=== PATIENT | male | born 1930 | race Caucasian/White ===

== ENCOUNTER 2016-05-07 16:01 | Inpatient (IN) | payer MEDICARE, BC ==
--- NOTE | ~2016-05-07 | DS ---
Unit #: [id number] #: [id number] Patient: COLBY CARVALHO [id number] [address] [address] [id number] I MR#: [id number] NAME: COLBY CARVALHO ROOM: 469 Age: 85 Sex: M Admission Date: 05/07/2016 : 1930 Discharge Date: 05/11/2016 Attending Physician: José Young M.D. Primary Care Physician: Sue Bell Aprn DISCHARGE SUMMARY ADDENDUM Please see above for hospital stay. At the time of discharge, Physical and occupational therapy Services were evaluating the patient, ambulating him approximately 250 feet and they felt as though the patient was in favor of going home and therefore rather than planning for discharge to rehab, the patient will be transitioned back home in stable condition. He was given appropriate prescriptions as mentioned above. It is ideal if he could follow up with his PCP in approximately 7 to 10 days postdischarge. Dictated by... Simon Ryder/victor hugo TD: 05/12/2016 02:34 JOB #: [id number] DISCHARGE SUMMARY Page 1 of 1 X José Young MD X DISCHARGE SUMMARY
--- NOTE | ~2016-05-07 | CO ---
Unit #: [id number] #: [id number] Patient: COLBY CARVALHO [id number] [address] [address] [id number] I MR#: [id number] NAME: COLBY CARVALHO. ROOM: 469 Age: 85 Sex: M Admission Date: 05/07/2016 : 1930 Attending Physician: José Young M.D. Primary Care Physician: Sue Bell Aprn Consultation Date: 05/08/2016 CONSULTATION REPORT REASON FOR CONSULTATION Right wrist pain. HISTORY OF PRESENT ILLNESS Mr. Carvalho is a pleasant 85-year-old male, who presents today with right wrist pain. The patient reports right wrist pain that has been going on for the past 4 days. He reports increased swelling and decreased mobility. The patient is unable to hold anything heavy in his hand, because of the wrist pain. He reports no injury that he can recall. No falls or altercations. The patient reports all of his pain is at the distal radius. The patient denies any history of gouty attack. PAST MEDICAL HISTORY Significant for, 1. Chronic respiratory failure. 2. COPD. 3. Hypertension. 4. Hyperlipidemia. 5. Prostate cancer. MEDICATIONS Include Coreg, Prinivil, Advair, ProAir, tramadol, probiotic, multivitamin, and glucosamine. ALLERGIES Aspirin. FAMILY HISTORY Insignificant. PAST SURGICAL HISTORY Significant for prostatectomy, colonoscopy, and kyphoplasty. SOCIAL HISTORY The patient smokes a pack of cigarettes a day. He denies any alcohol or illicit drug use. REVIEW OF SYSTEMS Ten organ systems reviewed. The patient denies any blurry vision, congestion, sore throat, shortness of breath, chest pain, abdominal pain, urinary incontinence, numbness, tingling, skin ulcers or lesions, anxiety, depression. Positive for joint pain. Unit #: [id number] #: [id number] Patient: COLBY CARVALHO PHYSICAL EXAMINATION GENERAL: No acute distress, alert and oriented x3. VITAL SIGNS: Temperature 98.6, pulse 91, respirations 18, blood pressure 130/70. HEENT: PERRLA. Nonicteric sclerae. THORAX: Trachea midline. No thyromegaly. CARDIAC: S1, S2. No extra sounds or murmurs. LUNGS: Clear to auscultation. No rales or rhonchi. ABDOMEN: Nondistended and nontender. Positive bowel sounds. : Deferred. MUSCULOSKELETAL: Positive edema. No erythema or ecchymosis. Decreased range of motion. Very limited flexion. Tenderness to palpation over the distal radius. NEUROLOGIC: II through XII intact. SKIN: Cool and dry. PSYCH: Good insight and good judgment. Mood and affect are pleasant. DIAGNOSTIC STUDIES LABORATORY RESULTS: On admission show an elevated CRP and sedimentation rate. IMAGING STUDIES: X-rays Of the right wrist show no acute abnormalities, no fractures or dislocations. CT scan was ordered in the emergency room, it is currently pending. ASSESSMENT Right wrist, pseudogout. PLAN I have discussed treatment options with the patient once we get the CT scan read and resulted, we will make our assessment. The patient will continue his cortisone by mouth. I recommended an aspiration today. We will go ahead and order the materials and aspirate his wrist looking for any crystals or infection. It does not appear that the patient has any signs of infection today, it looks like more of a gout or pseudogout abnormality. Dictated by... Too Huntley/victor hugo TD: 05/11/2016 23:02 JOB #: [id number] CONSULTATION REPORT Page 1 of 1 X Imani Duff CONSULTATION REPORT
--- NOTE | ~2016-05-07 | DS ---
Unit #: [id number] #: [id number] Patient: COLBY CARVALHO [id number] [address] [address] [id number] I MR#: [id number] NAME: COLBY CARVALHO. ROOM: 469 Age: 85 Sex: M Admission Date: 05/07/2016 : 1930 Discharge Date: 05/11/2016 Attending Physician: José Young M.D. Primary Care Physician: Sue Bell Aprn DISCHARGE SUMMARY REASON FOR ADMISSION Weakness and right upper extremity red swollen right wrist. HISTORY OF PRESENT ILLNESS/HOSPITAL COURSE The patient is a very pleasant 85-year-old male with underlying history of COPD and chronic respiratory failure, not on home O2; hypertension; hyperlipidemia; prior history of hemorrhagic CVA; prostate cancer, who presented to the emergency department secondary to evaluation of above. Through hospital course, he underwent a CT of his right upper extremity, which raise the possibility of pseudogout versus crystal deposition. In regard to the same results, we raised the possibility of septic arthritis and therefore we consulted Orthopedic services, [facility] saw and evaluated the patient. The patient underwent a trial of aspiration. Unfortunately, there was no fluid which was elicited. His uric acid level was assessed that was normal. His inflammatory markers were elevated and therefore, consideration for possible pseudogout was made and therefore, we placed him on IV Solu-Medrol as well as anti-inflammatories in the IV. His right wrist responded very well. He was able to regain full function of his right wrist swelling that did reduce as well as did redness. Physical and occupational therapy Services saw and evaluated the patient in consideration, the patient does reside at home alone. Both services have now recommended rehab at time of discharge given his prior history of CVA as well as a chronic debilitated state and profound weakness. They have recommended physical and occupational therapy at the rehab facility with transitioned to home at a later point in time. Therefore, appropriate arrangements will be made for the patient to be transitioned to rehab later this afternoon. FINAL DISCHARGE DIAGNOSES 1. Right wrist pseudogout. 2. Immobility syndrome. 3. Prior history of hemorrhagic cerebrovascular accident. 4. Chronic deconditioning. 5. Chronic respiratory failure. 6. Chronic obstructive pulmonary disease. 7. Hypertension. 8. Hyperlipidemia. 9. Prior history of prostate cancer, status post prostatectomy. Unit #: [id number] #: [id number] Patient: COLBY CARVALHO 10. Ongoing tobacco abuse. 11. Prior history of compression fracture, status post kyphoplasty. 12. Chronic pain syndrome. DISCHARGE MEDICATIONS ProAir HFA one puff q.4 p.r.n., Advair 250/50 one puff b.i.d., probiotic daily, Coreg 3.125 mg p.o. b.i.d., Prinivil 5 mg p.o. daily, multivitamin daily, prednisone 40 mg p.o. daily x5 days, Mobic 15 mg p.o. daily x5 days, and Ultram 50 mg p.o. q.8 p.r.n. DISCHARGE CONDITION Stable. DISCHARGE DISPOSITION To rehab for ongoing care. Dictated by... Simon Ryder/victor hugo TD: 05/11/2016 23:45 JOB #: [id number] DISCHARGE SUMMARY Page 1 of 1 X José Young MD X DISCHARGE SUMMARY
--- NOTE | ~2016-05-07 | CR282 ---
[facility] A Service of [facility] & [facility] RADIOLOGY TEXT RESULTS PATIENT: COLBY CARVALHO LOCATION: [facility] 469-01 : 32 UNIT #: [id number] AGE: [address]: José Young MD SEX: M ORDER DR: [id number] [facility] [address] [place], [place] [address] [id number] I MR#: [id number] Acc #: [id number] NAME: COLBY CARVALHO : 1930 SEX: M STUDY DATE/TIME: 05/07/2016 15:14 UNIT: [facility] ROOM: [facility] STUDY DESCRIPTION: CR Wrist Min 3 View Rt Attending Physician: Radha Baumann M.D. Ordering Physician: Kierra Mahoney M.D. Primary Care Physician: Doreen Bell MEDICAL IMAGING REPORT This report is preliminary unless electronic signature is present EXAM Right wrist, 05/07/2016 INDICATION Pain and swelling for the last 5 days with no known trauma. History of prostate cancer. FINDINGS 3 views of the right wrist were obtained. No comparison. Patient is osteopenic. There is calcification in the TFCC. There are also some soft tissue calcifications at the second metacarpophalangeal joint. These are all presumably degenerative. There is degenerative joint space narrowing and spurring at the first carpometacarpal joint. There are no fractures. There is radiocarpal joint space narrowing as well. IMPRESSION Osteopenia and degenerative disease as above, particularly at the first CMC joint and at the radiocarpal joint. No fracture. Dictated by... Alton Fernández Jr., M.D. THIS IS AN ELECTRONICALLY VERIFIED REPORT Alton Fernández Jr., M.D. at 05/11/2016 2:24 PM DEMARCUS/dinorah TD: 05/07/2016 23:14 JOB #: [id number] MEDICAL IMAGING REPORT COPY
--- NOTE | ~2016-05-07 | CT130 ---
[facility] A Service of [facility] & [facility] RADIOLOGY TEXT RESULTS PATIENT: COLBY CARVALHO LOCATION: [facility] 469-01 : 32 UNIT #: [id number] AGE: [address]: José Young MD SEX: M ORDER DR: [id number] [facility] [address] [place], [place] [address] [id number] I MR#: [id number] Acc #: [id number] NAME: COLBY CARVALHO. : 1930 SEX: M STUDY DATE/TIME: 05/07/2016 17:39 UNIT: [facility] ROOM: [facility] STUDY DESCRIPTION: CT Upper Ext Rt Wo Cont Attending Physician: Radha Baumann M.D. Ordering Physician: Kierra Mahoney M.D. Primary Care Physician: Doreen Bell MEDICAL IMAGING REPORT This report is preliminary unless electronic signature is present EXAM CT right wrist HISTORY Right arm redness, swelling since Wednesday. This CT exam was performed with one or more of the following radiation dose reduction techniques: automatic exposure control, adjustment of mA and/or kV according to patient size, and iterative reconstruction. FINDINGS Thin section axial images performed form through the right wrist without contrast. Multiplanar reconstructed images reviewed at a workstation. The study is limited due to the nonstandard orientation of the reconstructed images as these were performed emergently. Examination demonstrates arthrographic changes about the wrist with chondrocalcinosis in the midcarpal joints and also at the radiocarpal joint particularly in the region of the TFCC complex. This extensive chondrocalcinosis in combination with patient's clinical presentation suggests possible pseudogout or CPPD arthropathy. No fracture identified. No joint effusion. Mild arthritic changes are seen at the first CMC joint. IMPRESSION 1. Abnormal CT of the right wrist demonstrating extensive chondrocalcinosis involving the radiocarpal joint and to a lesser extent the midcarpal joint. This is very prominent in the region of the triangular fibrocartilage complex. In combination with the patient's clinical presentation this raises concern for possible pseudogout or CPPD arthropathy. Further evaluation with joint aspiration and crystallin analysis may be of benefit. 2. No acute fracture or malalignment. No focal osteolysis. [facility]. [facility] A Service of [facility] RADIOLOGY TEXT RESULTS PATIENT: COLBY CARVALHO LOCATION: [facility] 469-01 : 32 UNIT #: [id number] AGE: [address]: José Young MD SEX: M ORDER DR: Dictated by... Donnell Leija M.D. THIS IS AN ELECTRONICALLY VERIFIED REPORT Donnell Leija M.D. at 05/08/2016 5:11 PM Quynh TD: 05/08/2016 08:10 JOB #: [id number] MEDICAL IMAGING REPORT COPY
--- NOTE | ~2016-05-07 | HP ---
Unit #: [id number] #: [id number] Patient: COLBY CARVALHO [id number] [facility] [address] [place], [place] [address] [id number] MR#: [id number] NAME: COLBY CARVALHO. ROOM: 469 Age: 85 Sex: M Admission Date: 05/07/2016 : 1930 Attending Physician: Radha Baumann M.D. Primary Care Physician: Sue Bell Aprn HISTORY AND PHYSICAL CHIEF COMPLAINT Weakness right arm, red and swelling since Wednesday. HISTORY OF PRESENT ILLNESS The patient is an 85-year-old male with a past medical history of COPD, chronic respiratory failure, hypertension, hyperlipidemia, hemorrhagic stroke, prostate cancer, who presented to the emergency department for evaluation of the above. The patient states that he has not been feeling well for the past four to five days. He has had increasing generalized weakness. He has had a cough for about a week. He apparently saw his primary care physician last week and was not given any antibiotics. He reports that the cough has been occasionally productive. He has had chills. On 05/01/2016, the patient noticed that his right wrist was sore. It has become increasing red, swollen, and painful since that time. He has decreased appetite. He denies any vomiting or diarrhea. He has had chills. He denies any trauma to the wrist. In the emergency department a right wrist x-ray was done and showed no fracture. A CT of the right upper extremity is pending. Chest x-ray shows nothing acute. He was given vancomycin and Rocephin for possible septic arthritis. He is being admitted to [facility] for evaluation and further treatment. PAST MEDICAL HISTORY 1. The patient was admitted to [facility] in 05/2015 when he slid out of his chair and he subsequently went to rehab (no records). 2. The patient was seen at [facility] 12/07/[address] showed intraparenchymal hemorrhage and so he was transferred to [facility]. 3. Chronic respiratory failure on 2 L of oxygen per nasal cannula. 4. COPD. 5. Hypertension. 6. Hyperlipidemia. 7. Prostate cancer, status post prostatectomy. 8. COPD with continued tobacco abuse. PAST SURGICAL HISTORY 1. Colonoscopy. 2. Kyphoplasty. SOCIAL HISTORY The patient lives alone. He smokes a pack of cigarettes daily. He denies Unit #: [id number] #: [id number] Patient: COLBY CARVALHO alcohol use. FAMILY HISTORY Notable for his dad having a stroke. ALLERGIES Aspirin. HOME MEDICATIONS Coreg 3.125 mg daily; Prinivil 5 mg daily; Advair 250/50 inhaled daily; ProAir p.r.n.; tramadol 2 tablets t.i.d. p.r.n.; probiotic daily; Theragran multivitamin daily; glucosamine chondroitin twice daily. REVIEW OF SYSTEMS A complete review of systems is negative except as indicated in the HPI. PHYSICAL EXAMINATION VITAL SIGNS: Temperature is 98.6, pulse 91, respirations 18, blood pressure 130/70, oxygen saturation was 89% on room air. GENERAL: The patient is a male who is awake and alert in no acute distress. HEENT: Head is atraumatic. Mucous membranes are moist. NECK: Supple. Trachea is midline. CARDIOVASCULAR: Regular rate and rhythm. LUNGS: Relatively clear to auscultation bilaterally with no increased work of breathing. ABDOMEN: Soft, nontender with bowel sounds present in all four quadrants. EXTREMITIES: The dorsal aspect of the right wrist is erythematous, warm, edematous and tender to the lightly palpation. He does have a 2+ radial pulse in this region. There is no pedal edema. NEUROLOGIC: The patient is awake and alert. He follows commands. PSYCH: Mood and affect are normal. The patient is cooperative. SKIN: Skin of examined areas is warm and dry. DIAGNOSTIC STUDIES CARDIOLOGY STUDIES: EKG shows normal sinus rhythm at a rate of 81 BPM. IMAGING STUDIES: Chest x-ray shows nothing acute. Right wrist x-ray shows no fracture. LABORATORY STUDIES: Troponin is less than 0.05, INR 1.1, BNP is 30, lactic acid is 1.4. Comprehensive metabolic panel is notable for a chloride of 94, bicarb is 35, BUN and creatinine 25 and 1 respectively. Total protein is 8.4, magnesium is 1.7, CRP is 15.8. Complete blood count is essentially normal. Urinalysis notable for 2+ protein. ASSESSMENT The patient is an 85-year-old male with: 1. Right wrist pain concerning for septic arthritis. The ER physician, Dr. Mahoney, spoke with Morenita of orthopedics who agreed to see the patient in consultation. The patient has been given vancomycin, Rocephin and Zithromax in the emergency department. 2. COPD with continued tobacco abuse. 3. Chronic respiratory failure on 2 L of oxygen per nasal cannula. 4. Hypertension. 5. Hyperlipidemia. 6. History of prostate cancer, status post prostatectomy. Unit #: [id number] #: [id number] Patient: COLBY CARVALHO PLANS 1. Admit to an intermediate level. 2. Healthy heart diet. 3. Normal saline at 75 mL an hour. 4. Blood cultures x2. 5. Vancomycin IV and Rocephin IV pending further workup. 6. Consult Dr. Burnett regarding septic arthritis. 7. Supplemental oxygen. 8. P.r.n. DuoNeb. 9. Serial cardiac enzymes. 10. P.r.n. [place]. 11. Repeat labs in the morning. 12. SCDs for DVT prophylaxis. 13. Additional workup and consultants based on above. Dictated by Simon Kaiser/sanjay TD: 05/08/2016 06:25 JOB #: [id number] HISTORY AND PHYSICAL X Radha Baumann MD X HISTORY AND PHYSICAL
--- NOTE | ~2016-05-07 | CR72 ---
[facility] A Service of [facility] RADIOLOGY TEXT RESULTS PATIENT: COLBY CARVALHO LOCATION: [facility] : 32 UNIT #: [id number] AGE: [address]: Radha Baumann MD SEX: M ORDER DR: [id number] [facility] [address] [place], [place] [address] [id number] I MR#: [id number] Acc #: [id number] NAME: COLBY CARVALHO : 1930 SEX: M STUDY DATE/TIME: 05/07/2016 15:13 UNIT: [facility] ROOM: [facility] STUDY DESCRIPTION: CR Chest Single View Portable Attending Physician: Radha Baumann M.D. Ordering Physician: Kierra Mahoney M.D. Primary Care Physician: Sue Bell Aprn MEDICAL IMAGING REPORT This report is preliminary unless electronic signature is present EXAM Portable chest. DATE OF EXAM 05/07/2016 HISTORY Cough and weakness for the past 5 days. TECHNIQUE A single AP view of the chest was obtained. COMPARISON Compared with 12/07/2014. FINDINGS Cardiomegaly has improved since the previous exam. Nonspecific patchy infiltrates are seen at both lung bases, but they are present on the previous examination as well. The upper lung jean baptiste are clear and the vascular pattern is normal. No pleural fluid is seen. IMPRESSION Chronic bibasilar infiltrates are again noted and not significantly changed. Cardiomegaly has improved since the previous exam. No active disease. Dictated by... Alton Pascal M.D. THIS IS AN ELECTRONICALLY VERIFIED REPORT Alton Pascal M.D. at 05/08/2016 8:20 AM RLF/jt [facility] A Service of [facility] RADIOLOGY TEXT RESULTS PATIENT: COLBY CARVALHO LOCATION: [facility] 4610-23 : 32 UNIT #: [id number] AGE: [address]: Radha Baumann MD SEX: M ORDER DR: TD: 05/07/2016 23:16 JOB #: [id number] MEDICAL IMAGING REPORT COPY
--- NOTE | ~2016-05-07 | EKG ---
PATIENT: COLBY CARVALHO UNIT #: [id number] Ventricular Rate: 81 BPM Atrial Rate: 81 BPM P-R Interval: 138 ms QRS Duration: 96 ms Q-T Interval: 356 ms QTC Calculation(Bezet): 413 ms P [place]: 51 degrees Calculated R [place]: 52 degrees Calculated T [place]: 59 degrees Diagnosis Line: Normal sinus rhythm Diagnosis Line: Normal ECG Diagnosis Line: When compared with ECG of 07-DEC-2014 14:16, Diagnosis Line: Premature atrial complexes are no longer Present Diagnosis Line: Confirmed by MARISSA FINNEY MD ([id number]) on 05/08/2016 Diagnosis Line: 12:06:18 PM INTERPRETING MD: REG COOLEY
[2016-05-07 15:28] LABS: BASOPHIL% 0.4 % (0-2.5); EOSINOPHIL# 0.2 X10e3 (0-0.7); EOSINOPHIL% 2.1 % (0.0-7.0); HEMATOCRIT 47.4 % (38.0-50.0); HEMOGLOBIN 15.6 gm/dL (13.0-16.0); LYMPHOCYTE# 1.2 X10e3 (1.0-3.5); LYMPHOCYTE% 12.6 % (17.0-45.0); MEAN CELL VOLUME 98.9 FL (83-96); MEAN CORPUSCULAR HEMOGLOBIN 32.6 PG (28-34); MEAN CORPUSCULAR HGB CONC 32.9 g/dL (30-36); MEAN PLATELET VOLUME 8.1 FL (6.5-11.5); MONOCYTE# 0.9 X10e3 (0-1.0); MONOCYTE% 9.2 % (3.0-12.0); NEUTROPHIL# 7.4 X10e3 (1.5-7.1); NEUTROPHIL% 75.7 % (40-75); PLATELET COUNT 169 X10e3 (140-420); RED CELL DISTRIBUTION WIDTH 13.8 % (11.0-15.5); WHITE BLOOD COUNT 9.8 X10e3 (4.0-10.5)
[2016-05-07 15:37] LABS: POC - CKMB 2.3 ng/mL (0.0-7.9); POC - TROPONIN <0.05 ng/mL (<=0.05)
[2016-05-07 15:40] LABS: DIFF IND NO
[2016-05-07 15:59] LABS: INR 1.1; PARTIAL THROMBOPLASTIN TIME 26.4 SECONDS (23.5-31.3); PROTHROMBIN TIME (PATIENT) 11.8 SECONDS (9.6-11.5)
[~2016-05-07 16:01] MED LIST: CARDIZEM CD; CARVEDILOL12.5 MG PO; DIOVAN; IBUPROFEN; KEFLEX PO; LORTAB 7.5-3251 EACH PO; MULTI-VITAMIN1 TAB; NIACIN; PERCOCET7.5 PO; PROBIOTIC1 EAC1 PO; VICODIN 5/500 T1 TAB PO; ZESTRIL40 MG PO
[2016-05-07 16:12] LABS: ALBUMIN SERUM 3.7 g/dL (3.5-5.0); ALKALINE PHOSPHATASE 84 U/L (32-92); ALT (SGPT) 14 U/L (10-40); AST (SGOT) 35 U/L (10-42); BILIRUBIN, DIRECT 0.2 mg/dL (0.0-0.2); BILIRUBIN,INDIRECT 0.7 mg/dL (0.0-0.9); BILIRUBIN,TOTAL 0.9 mg/dL (0.2-2.0); BLOOD UREA NITROGEN 25 mg/dL (9-23); CALCIUM SERUM 9.6 mg/dL (8.4-10.2); CARBON DIOXIDE 35 mmol/L (22-31); CHLORIDE 94 mmol/L (100-111); GLOM FILT RATE Estimated ABOVE60 mL/min (>60); GLUCOSE FASTING 81 mg/dL (70-110); MAGNESIUM 1.7 mg/dL (1.6-3.0); POTASSIUM 4.1 mmol/L (3.5-5.1); PROTEIN TOTAL SERUM 8.4 g/dL (6.0-8.3); SODIUM 139 mmol/L (135-145)
[2016-05-07 17:03] LABS: POC - TROPONIN <0.05 ng/mL (<=0.05)
[2016-05-07] MEDS ORDERED: COREG3.125 MG PO (17:25)
[2016-05-07] MEDS ORDERED: PRINIVIL5 MG PO (17:25)
[2016-05-07] MEDS ORDERED: ADVAIR 250-501 EACH INH (17:25)
[2016-05-07] MEDS ORDERED: PROAIR HFA8.5 GM INH (17:26)
[2016-05-07] MEDS ORDERED: TRAMADOL HCL50 M1 PO (17:27)
[2016-05-07] MEDS ORDERED: PROBIOTIC1 EAC1 PO (17:27)
[2016-05-07] MEDS ORDERED: THERAGRAN1 TAB PO (17:27)
[2016-05-07] MEDS ORDERED: CVS GLUCOSAMIN1 EACH PO (17:28)
[2016-05-07 17:41] LABS: URINE SOURCE CLEAN CATCH
[2016-05-07 17:56] LABS: URINE APPEARANCE CLEAR; URINE BILIRUBIN NEG (NEG); URINE BLOOD NEG (NEG); URINE COLOR DK YELLOW; URINE GLUCOSE NEG (NEG); URINE KETONE TRACE (NEG); URINE LEUKOCYTE ESTERASE NEG (NEG); URINE NITRATE NEG (NEG); URINE PROTEIN 2+ (NEG); URINE SPECIFIC GRAVITY 1.028 (1.003-1.035)
[2016-05-07 17:59] LABS: URINE BACTERIA AUWI NEG (NEGATIVE); URINE SQUAMOUS EPITHELIAL CELL NONE SEEN /[HPF]; UWBCS1 AUWI 0-2 (0-5)
[2016-05-07 18:01] LABS: CULTURE INDICATED? NO
[2016-05-08 00:10] LABS: %MB 0.4 % (0.0-4.0); MB 1.7 ng/ml
[2016-05-08 05:01] LABS: BASOPHIL% 0.6 % (0-2.5); DIFF IND NO; EOSINOPHIL# 0.3 X10e3 (0-0.7); EOSINOPHIL% 3.7 % (0.0-7.0); HEMATOCRIT 41.7 % (38.0-50.0); HEMOGLOBIN 13.6 gm/dL (13.0-16.0); LYMPHOCYTE# 1.6 X10e3 (1.0-3.5); LYMPHOCYTE% 19.9 % (17.0-45.0); MEAN CELL VOLUME 99.2 FL (83-96); MEAN CORPUSCULAR HEMOGLOBIN 32.3 PG (28-34); MEAN CORPUSCULAR HGB CONC 32.5 g/dL (30-36); MEAN PLATELET VOLUME 7.8 FL (6.5-11.5); MONOCYTE# 0.7 X10e3 (0-1.0); MONOCYTE% 9.4 % (3.0-12.0); NEUTROPHIL# 5.3 X10e3 (1.5-7.1); NEUTROPHIL% 66.4 % (40-75); PLATELET COUNT 135 X10e3 (140-420); RED CELL DISTRIBUTION WIDTH 13.7 % (11.0-15.5); WHITE BLOOD COUNT 7.9 X10e3 (4.0-10.5)
[2016-05-08 05:50] LABS: %MB 0.4 % (0.0-4.0); MB 1.4 ng/ml
[2016-05-08 06:14] LABS: ALBUMIN SERUM 2.7 g/dL (3.5-5.0); ALKALINE PHOSPHATASE 64 U/L (32-92); ALT (SGPT) 14 U/L (10-40); AST (SGOT) 23 U/L (10-42); BILIRUBIN,TOTAL 0.6 mg/dL (0.2-2.0); BLOOD UREA NITROGEN 17 mg/dL (9-23); BUN/CREATININE RATIO 24.28; CALCIUM SERUM 8.3 mg/dL (8.4-10.2); CARBON DIOXIDE 31 mmol/L (22-31); CHLORIDE 96 mmol/L (100-111); CREATININE SERUM 0.7 mg/dL (0.6-1.4); GLOM FILT RATE Estimated ABOVE60 mL/min (>60); GLUCOSE FASTING 102 mg/dL (70-110); POTASSIUM 3.9 mmol/L (3.5-5.1); PROTEIN TOTAL SERUM 6.2 g/dL (6.0-8.3); SODIUM 135 mmol/L (135-145)
[2016-05-09 03:58] LABS: HEMATOCRIT 40.4 % (38.0-50.0); HEMOGLOBIN 13.2 gm/dL (13.0-16.0); MEAN CELL VOLUME 97.5 FL (83-96); MEAN CORPUSCULAR HGB CONC 32.8 g/dL (30-36); MEAN PLATELET VOLUME 8.7 FL (6.5-11.5); RED BLOOD COUNT 4.14 X10e (3.90-5.60); RED CELL DISTRIBUTION WIDTH 13.7 % (11.0-15.5); WHITE BLOOD COUNT 6.2 X10e3 (4.0-10.5)
[2016-05-09 11:01] LABS: BLOOD UREA NITROGEN 21 mg/dL (9-23); CALCIUM SERUM 8.7 mg/dL (8.4-10.2); CARBON DIOXIDE 27 mmol/L (22-31); CHLORIDE 100 mmol/L (100-111); CREATININE SERUM 0.7 mg/dL (0.6-1.4); GLOM FILT RATE Estimated ABOVE60 mL/min (>60); GLUCOSE FASTING 224 mg/dL (70-110); POTASSIUM 4.3 mmol/L (3.5-5.1); SODIUM 137 mmol/L (135-145)
[2016-05-10 03:41] LABS: BASOPHIL% 0.1 % (0-2.5); DIFF IND NO; HEMATOCRIT 40.6 % (38.0-50.0); HEMOGLOBIN 13.5 gm/dL (13.0-16.0); LYMPHOCYTE# 0.8 X10e3 (1.0-3.5); LYMPHOCYTE% 9.2 % (17.0-45.0); MEAN CELL VOLUME 97.3 FL (83-96); MEAN CORPUSCULAR HEMOGLOBIN 32.3 PG (28-34); MEAN CORPUSCULAR HGB CONC 33.2 g/dL (30-36); MEAN PLATELET VOLUME 8.7 FL (6.5-11.5); MONOCYTE# 0.4 X10e3 (0-1.0); MONOCYTE% 4.5 % (3.0-12.0); NEUTROPHIL# 7.6 X10e3 (1.5-7.1); NEUTROPHIL% 86.2 % (40-75); PLATELET COUNT 143 X10e3 (140-420); RED BLOOD COUNT 4.17 X10e (3.90-5.60); RED CELL DISTRIBUTION WIDTH 13.5 % (11.0-15.5); WHITE BLOOD COUNT 8.8 X10e3 (4.0-10.5)
[2016-05-10 04:01] LABS: BLOOD UREA NITROGEN 24 mg/dL (9-23); CALCIUM SERUM 8.2 mg/dL (8.4-10.2); CARBON DIOXIDE 28 mmol/L (22-31); CHLORIDE 99 mmol/L (100-111); CREATININE SERUM 0.8 mg/dL (0.6-1.4); GLOM FILT RATE Estimated ABOVE60 mL/min (>60); GLUCOSE FASTING 149 mg/dL (70-110); POTASSIUM 4.2 mmol/L (3.5-5.1); SODIUM 131 mmol/L (135-145)
[2016-05-11 03:54] LABS: BLOOD UREA NITROGEN 29 mg/dL (9-23); BUN/CREATININE RATIO 36.25; CALCIUM SERUM 8.6 mg/dL (8.4-10.2); CARBON DIOXIDE 29 mmol/L (22-31); CHLORIDE 96 mmol/L (100-111); CREATININE SERUM 0.8 mg/dL (0.6-1.4); GLOM FILT RATE Estimated ABOVE60 mL/min (>60); GLUCOSE FASTING 168 mg/dL (70-110); POTASSIUM 4.6 mmol/L (3.5-5.1); SODIUM 134 mmol/L (135-145)
[2016-05-11] MEDS ORDERED: ULTRAM PO (13:18)
[2016-05-11] MEDS ORDERED: PREDNISONE PO (13:18)
[2016-05-11] MEDS ORDERED: MOBIC PO (13:19)
[2016-05-11] MEDS ORDERED: PEPCID PO (13:21)
== END 2016-05-11 14:09 | disposition home health service (06) | DRG 553 ==
LOC: CED 16:01 → CEDOF 19:10 → C4C 20:50
PROVIDERS: Emergency Medicine; Family Medicine
DX: M11.231 Other chondrocalcinosis, right wrist (principal); J96.91 Respiratory failure, unspecified with hypoxia; J44.9 Chronic obstructive pulmonary disease, unspecified; M62.3 Immobility syndrome (paraplegic); Z86.73 Personal history of transient ischemic attack (TIA), and cerebral infarction without residual deficits; I10 Essential (primary) hypertension; E78.5 Hyperlipidemia, unspecified; Z85.46 Personal history of malignant neoplasm of prostate; G89.4 Chronic pain syndrome; F17.210 Nicotine dependence, cigarettes, uncomplicated; Z51.5 Encounter for palliative care
CPT/HCPCS: 36415; 71010; 73110; 73200; 80048; 80053; 80076; 81003; 82550; 82553; 83605; 83735; 83880; 84484; 84550; 85025; 85027; 85610; 85652; 85730; 86140; 87040; 93005; 94640; 94760; 96365; 96367; 97110; 97116; 97162; 97167; 97530; 97535; 99285; C9113; G8978-GP; G8979-GP; G8987-GO; G8988-GO; J0456; J0696; J1885; J2920; J2930; J3370

== ENCOUNTER 2016-08-10 18:24 | Emergency (ER) | payer MEDICARE, BC ==
--- NOTE | ~2016-08-10 | CR72 ---
[facility] A Service of [facility] & [facility] RADIOLOGY TEXT RESULTS PATIENT: COLBY CARVALHO LOCATION: [facility] : 32 UNIT #: [id number] AGE: [address]: Kierra Mahoney MD SEX: M ORDER DR: [id number] [facility] [address] [place], [place] [address] [id number] E MR#: [id number] Acc #: [id number] NAME: COLBY CARVALHO : 1930 SEX: M STUDY DATE/TIME: 08/10/20162307 UNIT: [facility] ROOM: STUDY DESCRIPTION: CR Chest Single View Portable Attending Physician: Kierra Mahoney M.D. Ordering Physician: Kierra Mahoney M.D. Primary Care Physician: Sue Bell Aprn MEDICAL IMAGING REPORT This report is preliminary unless electronic signature is present EXAM Portable chest, 2307. INDICATION Shortness of air with diaphoresis that started tonight. FINDINGS AP portable chest compared with 05/07/2016. Chronic bibasilar scarring is present. Lungs otherwise are clear. Cardiac and mediastinal contours are stable. No pneumothorax. IMPRESSION No acute findings in the chest. There is stable bibasilar scarring. Dictated by... Alton Fernández Jr., M.D. THIS IS AN ELECTRONICALLY VERIFIED REPORT Alton Fernández Jr., M.D. at 08/11/2016 9:21 PM DEMARCUS/yesika TD: 08/11/2016 11:40 JOB #: [id number] MEDICAL IMAGING REPORT Page 1 of 1 COPY
--- NOTE | ~2016-08-10 | CT71 ---
[facility] A Service of [facility] & [facility] RADIOLOGY TEXT RESULTS PATIENT: COLBY CARVALHO LOCATION: [facility] : 32 UNIT #: [id number] AGE: [address]: Kierra Mahoney MD SEX: M ORDER DR: [id number] [facility] [address] [place], [place] [address] [id number] E MR#: [id number] Acc #: [id number] NAME: COLBY CARVALHO. : 1930 SEX: M STUDY DATE/TIME: 08/11/2016 0140 UNIT: [facility] ROOM: STUDY DESCRIPTION: CT Head Wo Contrast Attending Physician: Kierra Mahoney M.D. Ordering Physician: Kierra Mahoney M.D. Primary Care Physician: Sue Bell Aprn MEDICAL IMAGING REPORT This report is preliminary unless electronic signature is present EXAM Head CT, 08/11 at 0140 hours. INDICATION Dizziness, nausea, with neck pain that started today. History of stroke and prostate cancer. TECHNIQUE Axial images were obtained from the base to the vertex without contrast. This CT exam was performed with one or more of the following radiation dose reduction techniques: automatic exposure control, adjustment of mA and/or kV according to patient size, and iterative reconstruction. COMPARISON Comparison is made with 12/07/2014. FINDINGS There is generalized atrophy with advanced chronic small vessel ischemic disease in the white matter. Ventricular size is within normal limits. There is atherosclerotic disease in the carotid siphons. No acute infarct or hemorrhage is identified. There are no masses. There is chronic-appearing partial opacification of the left frontal sinus as well as bilateral ethmoid air cells. There is opacification of the right maxillary sinus which although new from the prior head CT could be acute or chronic. There is an old subinsular infarct on the right at the site of prior hemorrhage. IMPRESSION 1. Atrophy and chronic small vessel ischemic disease in the white matter. No acute findings in the brain. 2. Chronic changes in the paranasal sinuses. Additionally, there is new opacification in the right maxillary sinus since 2014. This could be [facility] A Service of [facility] & [facility] RADIOLOGY TEXT RESULTS PATIENT: COLBY CARVALHO [id number] UNIT #: [id number] AGE: [address]: Kierra Mahoney MD SEX: M ORDER DR: acute or chronic. Dictated by... Alton Fernández Jr., M.D. THIS IS AN ELECTRONICALLY VERIFIED REPORT Alton Fernández Jr., M.D. at 08/11/2016 9:22 PM DEMARCUS/yesika TD: 08/11/2016 12:14 JOB #: [id number] MEDICAL IMAGING REPORT Page 1 of 1 COPY
--- NOTE | ~2016-08-10 | CT17 ---
[facility] A Service of [facility] & [facility] RADIOLOGY TEXT RESULTS PATIENT: COLBY CARVALHO LOCATION: [facility] : 34 UNIT #: [id number] AGE: [address]: Kierra Mahoney MD SEX: M ORDER DR: [id number] [facility] [address] [place], [place] [address] [id number] E MR#: [id number] [facility] #: [id number] NAME: COLBY CARVALHO. : 1930 SEX: M STUDY DATE/TIME: 08/11/2016 01:48 UNIT: [facility] ROOM: STUDY DESCRIPTION: CT Angio Head Attending Physician: Kierra Mahoney M.D. Ordering Physician: Kierra Mahoney M.D. Primary Care Physician: Doreen Bell [facility] IMAGING REPORT This report is preliminary unless electronic signature is present EXAM Head and neck CT angiogram, 08/11 at 01:48 hours HISTORY Dizziness, nausea and neck pain that started today. No trauma. History of stroke. TECHNIQUE Axial images were obtained through the head and neck following IV contrast administration. 3-D reformats were obtained. This CT exam was performed with one or more of the following radiation dose reduction techniques: automatic exposure control, adjustment of mA and/or kV according to patient size, and iterative reconstruction. COMPARISON No comparison CT angiogram. FINDINGS In the neck, there is no evidence of carotid or vertebral dissection. There is some mild plaque in the right carotid bulb but there is no stenosis by NASCET criteria. On the left side, calcified and noncalcified plaque noted at the bulb. This causes focal short segment narrowing of the proximal ICA on the left measuring 40% to 50% by NASCET criteria. No vertebral stenosis by NASCET criteria. Intracranially, minimal atherosclerotic plaque noted in the carotid siphons, but there is 0% stenosis by NASCET criteria. There is no intracranial aneurysm or vessel cutoff. No evidence of intracranial stenosis by NASCET criteria. No vascular malformation is seen. Chronic small vessel ischemic disease is present in the white matter. No abnormal enhancement is seen within the brain. Major dural venous sinuses are [facility] A Service of [facility] RADIOLOGY TEXT RESULTS PATIENT: COLBY CARVALHO LOCATION: [facility] : 32 UNIT #: [id number] AGE: [address]: Kierra Mahoney MD SEX: M ORDER DR: patent. There is a potential fluid level in the right maxillary sinus suggesting acute sinusitis. Correlate clinically. IMPRESSION 1. The vertebral arteries in the neck are normal and codominant. 2. Minimal plaque in the right carotid bifurcation without stenosis by NASCET criteria. 3. Plaque at the left carotid bulb causes a short segment 40% to 50% stenosis by NASCET criteria in the proximal left ICA. 4. No evidence of intracranial stenosis or aneurysm. No vascular cutoff or vascular malformation. Dictated by... Alton Fernández Jr., M.D. THIS IS AN ELECTRONICALLY VERIFIED REPORT Alton Fernández Jr., M.D. at 08/11/2016 9:23 PM DEMARCUS/marcial TD: 08/11/2016 12:17 JOB #: [id number] MEDICAL IMAGING REPORT Page 1 of 1 COPY
--- NOTE | ~2016-08-10 | CT23 ---
[facility] A Service of [facility] RADIOLOGY TEXT RESULTS PATIENT: COLBY CARVALHO LOCATION: [facility] : 34 UNIT #: [id number] AGE: [address]: Kierra Mahoney MD SEX: M ORDER DR: [id number] [facility] [address] [place], [place] [address] [id number] E MR#: [id number] Acc #: [id number] NAME: COLBY CARVALHO : 1930 SEX: M STUDY DATE/TIME: 08/11/2016 01:48 UNIT: [facility] ROOM: STUDY DESCRIPTION: CT Angio Neck Attending Physician: Kierra Mahoney M.D. Ordering Physician: Kierra Mahoney M.D. Primary Care Physician: Doreen Bell MEDICAL IMAGING REPORT This report is preliminary unless electronic signature is present EXAM CT angiogram of the neck, 08/11 at 01:48 hours HISTORY FINDINGS Please see CT angiogram of the head for results. Dictated by... Alton Fernández Jr., M.D. THIS IS AN ELECTRONICALLY VERIFIED REPORT Alton Fernández Jr., M.D. at 08/11/2016 9:23 PM Sheng TD: 08/11/2016 12:16 JOB #: [id number] MEDICAL IMAGING REPORT Page 1 of 1 COPY
--- NOTE | ~2016-08-10 | EKG ---
PATIENT: COLBY CARVALHO UNIT #: [id number] Ventricular Rate: 77 BPM Atrial Rate: 77 BPM P-R Interval: 152 ms QRS Duration: 94 ms Q-T Interval: 380 ms QTC Calculation(Bezet): 430 ms P [place]: 49 degrees Calculated R [place]: 59 degrees Calculated T [place]: 49 degrees Diagnosis Line: Normal sinus rhythm Diagnosis Line: Low voltage QRS Diagnosis Line: Borderline ECG Diagnosis Line: When compared with ECG of 10-AUG-2016 23:43, Diagnosis Line: (unconfirmed) Diagnosis Line: No significant change was found Diagnosis Line: Confirmed by ADRIANA SCHAEFER MD ([id number]) on Diagnosis Line: 08/11/2016 10:37:24 PM INTERPRETING MD: LUIS
[~2016-08-10 18:24] MED LIST changes: +ADVAIR 250-501 EACH INH; +COREG3.125 MG PO; +CVS GLUCOSAMIN1 EACH PO; +MOBIC PO; +PEPCID PO; +PREDNISONE PO; +PRINIVIL5 MG PO; +PROAIR HFA8.5 GM INH; +THERAGRAN1 TAB PO; +TRAMADOL HCL50 M1 PO; +ULTRAM PO
[2016-08-10 21:38] LABS: BASOPHIL% 0.3 % (0-2.5); EOSINOPHIL# 0.1 X10e3 (0-0.7); EOSINOPHIL% 0.7 % (0.0-7.0); HEMATOCRIT 46.5 % (38.0-50.0); HEMOGLOBIN 15.4 gm/dL (13.0-16.0); LYMPHOCYTE# 1.6 X10e3 (1.0-3.5); LYMPHOCYTE% 14.6 % (17.0-45.0); MEAN CORPUSCULAR HEMOGLOBIN 32.5 PG (28-34); MEAN CORPUSCULAR HGB CONC 33.2 g/dL (30-36); MEAN PLATELET VOLUME 7.8 FL (6.5-11.5); MONOCYTE# 0.3 X10e3 (0-1.0); MONOCYTE% 3.2 % (3.0-12.0); NEUTROPHIL# 8.6 X10e3 (1.5-7.1); NEUTROPHIL% 81.2 % (40-75); PLATELET COUNT 174 X10e3 (140-420); RED BLOOD COUNT 4.74 X10e (3.90-5.60); RED CELL DISTRIBUTION WIDTH 14.5 % (11.0-15.5); WHITE BLOOD COUNT 10.6 X10e3 (4.0-10.5)
[2016-08-10 21:53] LABS: BILIRUBIN, DIRECT 0.2 mg/dL (0.0-0.2); BILIRUBIN,INDIRECT 0.2 mg/dL (0.0-0.9); BILIRUBIN,TOTAL 0.4 mg/dL (0.2-2.0); CALCIUM SERUM 9.6 mg/dL (8.4-10.2); CREATININE SERUM 0.8 mg/dL (0.6-1.4); GLOM FILT RATE Estimated 82.6 mL/min (>60); POTASSIUM 4.8 mmol/L (3.5-5.1); PROTEIN TOTAL SERUM 8.1 g/dL (6.0-8.3)
[2016-08-10 22:03] LABS: DIFF IND NO
[2016-08-10 23:30] LABS: POC - CKMB <1.0 ng/mL (0.0-7.9); POC - TROPONIN <0.05 ng/mL (<=0.05)
[2016-08-10 23:36] LABS: URINE SOURCE CLEAN CATCH
[2016-08-10 23:43] LABS: URINE APPEARANCE CLEAR; URINE BILIRUBIN NEG (NEG); URINE BLOOD NEG (NEG); URINE COLOR DK YELLOW; URINE GLUCOSE NEG (NEG); URINE KETONE NEG (NEG); URINE LEUKOCYTE ESTERASE NEG (NEG); URINE NITRATE NEG (NEG); URINE PH 6.5 (5-8); URINE PROTEIN 1+ (NEG); URINE UROBILINOGEN 0.2 MG/DL (NEG)
[2016-08-10 23:49] LABS: CULTURE INDICATED? YES; URBCS1 AUWI 0-2 /[HPF] (0-2); URINE BACTERIA AUWI 1+ (NEGATIVE); URINE SQUAMOUS EPITHELIAL CELL NONE SEEN /[HPF]; UWBCS1 AUWI 0-2 (0-5)
[2016-08-11 01:43] LABS: POC - CKMB <1.0 ng/mL (0.0-7.9); POC - TROPONIN <0.05 ng/mL (<=0.05)
== END 2016-08-11 04:14 | disposition home or self-care (01) ==
LOC: CED 18:24
PROVIDERS: Emergency Medicine
DX: N39.0 Urinary tract infection, site not specified (principal); R42 Dizziness and giddiness; E78.5 Hyperlipidemia, unspecified; J44.9 Chronic obstructive pulmonary disease, unspecified; Z86.73 Personal history of transient ischemic attack (TIA), and cerebral infarction without residual deficits; Z85.828 Personal history of other malignant neoplasm of skin; Z85.46 Personal history of malignant neoplasm of prostate; F17.210 Nicotine dependence, cigarettes, uncomplicated; Z79.899 Other long term (current) drug therapy; Z88.6 Allergy status to analgesic agent; Z91.010 Allergy to peanuts
CPT/HCPCS: 36415; 70450; 70496; 70498; 71010; 80048; 80076; 81003; 82553; 84484; 85025; 87086; 93005; 99285; Q9967